=== PATIENT | female | born 1985 | race Caucasian/White ===

== ENCOUNTER 2016-07-29 11:40 | Emergency (ER) | payer OTHER ==
--- NOTE | 2016-07-29 12:03 | EDPHY ---
H & P Smoking Status: Never smoked Time Seen by Provider: 07/29/16 11:55 HPI/ROS: CHIEF COMPLAINT: Right 3rd 4th 5th digit skin avulsion HISTORY OF PRESENT ILLNESS: 31-year-old female with out-of-date tetanus, right- hand-dominant using a mandoline greater this morning and sustained superficial skin avulsion to her right 3rd 4th 5th digit. No paresthesia. PHYSICAL EXAM (Prior to examination, patient consented to physical exam, hands were washed and my usual and customary physical exam procedures followed) 1) GENERAL: Well-developed, well-nourished, alert and oriented. Appears to be in no acute distress. 2) HEAD: Normocephalic 3) HEENT: sclera anicteric 4) LUNGS: Breathing comfortably. 5) SKIN: Right 4th and 5th digit superficial skin avulsion with no flap. 3rd digit with a linear, 3 mm superficial laceration. (Kristine Hernandez) Constitutional: Initial Vital Signs Temperature (C) 36.3 C 07/29/16 11:41 Heart Rate 86 07/29/16 11:41 Respiratory Rate 18 07/29/16 11:41 Blood Pressure 97/43 L 07/29/16 11:41 O2 Sat (%) 97 07/29/16 11:41 O2 Delivery Mode Room Air Allergies/Adverse Reactions: Milk Containing Products [dairy] Allergy (Verified 07/29/16 11:43) Home Medications: Medication Instructions Recorded NK [No Known Home Meds] 07/29/16 MDM/Departure - MDM Procedures: Procedure: Digital nerve block 1% plain lidocaine digital nerve block use on the 3rd 4th 5th digits achieving total anesthesia distally. The area is then cleansed and dressed by ER voice intercept technician and dressed with Surgicel to the 4th and 5th digit and tissue adhesive on the 3rd digit.. Hemostasis achieved (Kristine Hernandez Kim) ED Course/Re-evaluation: The patient was evaluated and managed by the physician's commercial lines account assistant. My cosignature indicates that I reviewed the chart and I agree with the findings and plan of care as documented. I am the secondary supervising physician. ( Huong Hampton) - Depart Disposition: Home, Routine, Self-Care Clinical Impression: Avulsion of skin of finger Qualifiers: Encounter type: initial encounter Qualifier Code: (S61.209A) Unspecified open wound of unspecified finger without damage to nail, initial encounter Finger laceration involving tendon Qualifiers: Encounter type: initial encounter Qualifier Code: (S61.219A) Laceration without foreign body of unspecified finger without damage to nail, initial encounter Condition: Good Instructions: Skin Avulsion (ED), Laceration (ED), Skin Adhesive Care (ED) Additional Instructions: Return to the ER if you develop redness, swelling, discharge, warmth to the wound, red streaks going up your arm or any other symptoms that concern you. Referrals: [facility] [Outside] - 2-3 days, call for appt.
[2016-07-29] MEDS ORDERED: TDAP ADULT 0.5 ML INJ (BOOSTRIX) IM ONE (12:05)
[2016-07-29] MEDS ORDERED: SKIN ADHESIVE (DERMABOND) 1 EACH TP ONE (12:08)
[2016-07-29 12:41] VITALS: BP 127/94; PULSE 78; RESP 14; TEMP 98.4; O2SAT 94
== END 2016-07-29 12:44 | disposition home or self-care (01) ==
PROC: 3E0T3BZ Introduction of Anesthetic Agent into Peripheral Nerves and Plexi, Percutaneous Approach (ICD-10-PCS; principal; 2016-07-29)
DX: S61.204A Unspecified open wound of right ring finger without damage to nail, initial encounter (principal); S61.206A Unspecified open wound of right little finger without damage to nail, initial encounter; S66.522A Laceration of intrinsic muscle, fascia and tendon of right middle finger at wrist and hand level, initial encounter; Z23 Encounter for immunization; W26.8XXA Contact with other sharp object(s), not elsewhere classified, initial encounter; Y93.89 Activity, other specified